=== PATIENT | female | born 1985 | race American Indian/Alaskan Native ===

== ENCOUNTER 2020-04-26 18:08 | Emergency (ER) | payer SELFPAY ==
[2020-04-26] MEDS ORDERED: SODIUM CHLORIDE 0.9% 1000 ML 1,000 ML IV ONE (18:45)
[2020-04-26] MEDS ORDERED: FAMOTIDINE 20 MG/2 ML INJ IV ONE (18:45)
[2020-04-26] MEDS ORDERED: dexAMETHasone 20 MG/5 ML VIAL IV ONE (18:45)
--- NOTE | 2020-04-26 18:48 | Emergency Department Report ---
- General Chief complaint: Skin Rash Stated complaint: ALLERGIC REACTION Time Seen by Provider: 04/26/20 18:30 Source: patient Mode of arrival: Ambulatory Limitations: No Limitations - History of Present Illness Initial comments: 34-year-old -[place] female presents to the emergency room complaining of a rash to the face that started this morning. Patient states that the only thing she is eaten is a pink with a gallon which she has never had before. Patient reports she is has tingling feeling in her legs. She states that the rash is progressively gotten worse throughout the day. Patient states she took 4 Benadryl just in the last 3 hours. Patient states that the rash itches and she started to itch all over. Patient denies any difficulty swallowing no swelling of her tongue no wheezing or chest pain or shortness of breath. Patient denies any new medication denies any new perfumes no new soaps or lotions or colognes. 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 Patient states has had a C- section and tubal ligation. MD complaint: rash -: This morning Location: face Severity: moderate Quality: other (Itches and tingling to her lips) - Related Data Previous Rx's Medication Instructions Recorded Last Taken Type Cetirizine HCl [Zyrtec 10mg tab] 10 mg PO QDAY #14 tablet 04/26/20 Unknown Rx Famotidine [Pepcid] 20 mg PO BID #14 tablet 04/26/20 Unknown Rx predniSONE [Deltasone] 20 mg PO QDAY 5 Days #5 tab 04/26/20 Unknown Rx Allergies Allergy/AdvReac Type Severity Reaction Status Date / Time sulfamethoxazole Allergy Hives Verified 04/26/20 18:10 [From Bactrim] trimethoprim [From Bactrim] Allergy Hives Verified 04/26/20 18:10 Abscess Boil HPI - HPI Chief Complaint: Skin Rash Stated Complaint: ALLERGIC REACTION Time Seen by Provider: 04/26/20 18:30 Home Medications: Previous Rx's Medication Instructions Recorded Last Taken Type Cetirizine HCl [Zyrtec 10mg tab] 10 mg PO QDAY #14 tablet 04/26/20 Unknown Rx Famotidine [Pepcid] 20 mg PO BID #14 tablet 04/26/20 Unknown Rx predniSONE [Deltasone] 20 mg PO QDAY 5 Days #5 tab 04/26/20 Unknown Rx Allergies/Adverse Reactions: Allergies Allergy/AdvReac Type Severity Reaction Status Date / Time sulfamethoxazole Allergy Hives Verified 04/26/20 18:10 [From Bactrim] trimethoprim [From Bactrim] Allergy Hives Verified 04/26/20 18:10 ED Review of Systems ROS: Stated complaint: ALLERGIC REACTION Other details as noted in HPI Comment: All other systems reviewed and negative ED Past Medical Hx - Past Medical History Previous Medical History?: No - Surgical History Additional Surgical History: CSECTION TUBAL LIGATATION - Social History Smoking Status: Never Smoker Substance Use Type: Alcohol - Medications Home Medications: Home Medications Medication Instructions Recorded Confirmed Last Taken Type Cetirizine HCl [Zyrtec 10mg tab] 10 mg PO QDAY #14 tablet 04/26/20 Unknown Rx Famotidine [Pepcid] 20 mg PO BID #14 tablet 04/26/20 Unknown Rx predniSONE [Deltasone] 20 mg PO QDAY 5 Days #5 tab 04/26/20 Unknown Rx ED Physical Exam - General Limitations: No Limitations General appearance: alert, in no apparent distress - Head Head exam: Present: atraumatic, normocephalic - Eye Eye exam: Present: normal appearance - ENT ENT exam: Present: normal exam, normal orophraynx, mucous membranes moist - Neck Neck exam: Present: normal inspection, full ROM - Respiratory Respiratory exam: Present: normal lung sounds bilaterally. Absent: accessory muscle use - Cardiovascular Cardiovascular Exam: Present: regular rate, normal rhythm. Absent: systolic murmur, diastolic murmur, rubs, gallop - Neurological Exam Neurological exam: Present: alert, oriented X3, normal gait - Skin Skin exam: Present: erythema, urticaria - Expanded Skin Exam Expanded Distribution of rash: face Description of rash: Present: erythematous, papular ED Course Vital Signs 04/26/20 18:11 Temperature 97.7 F Pulse Rate 73 Respiratory 16 Rate Blood Pressure 127/76 O2 Sat by Pulse 100 Oximetry - Reevaluation(s) Reevaluation #1: 04/26/20 20:59 Patient reports she feels much better after having medication. ED Medical Decision Making - Medical Decision Making 34-year-old -[place] female presents to the emergency room complaining of a rash to the face that started this morning. Patient states that the only thing she is eaten is a pink with a gallon which she has never had before. Patient reports she is has tingling feeling in her legs. She states that the rash is progressively gotten worse throughout the day. Patient states she took 4 Benadryl just in the last 3 hours. Patient states that the rash itches and she started to itch all over. Patient denies any difficulty swallowing no swelling of her tongue no wheezing or chest pain or shortness of breath. Patient denies any new medication denies any new perfumes no new soaps or lotions or colognes. 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 Patient states has had a C-sect ion and tubal ligation. Patient will be given an IV of normal saline dexamethasone 10 mg IV and Pepcid 20 mg IV. [id number] blood sugar will be checked before placing patient on prednisone. Patient also be discharged on Pepcid and Zyrtec. Critical care attestation.: If time is entered above; I have spent that time in minutes in the direct care of this critically ill patient, excluding procedure time. ED Disposition Clinical Impression: Allergic reaction Qualifiers: Encounter type: initial encounter Qualified Code(s): T78.40XA - Allergy, unspecified, initial encounter Disposition: TO HOME OR SELFCARE Is pt being admited?: No Does the pt Need Aspirin: No Condition: Stable Instructions: Allergies, Adult Additional Instructions: Please take medications as prescribed. If symptoms does not improve in a few days please follow-up with a ip litigation paralegal. Prescriptions: predniSONE [Deltasone] 20 mg PO QDAY 5 Days #5 tab Famotidine [Pepcid] 20 mg PO BID #14 tablet Cetirizine HCl [Zyrtec 10mg tab] 10 mg PO QDAY #14 tablet Referrals: [facility],MD [Primary Care Provider] - 3-5 Days [facility] [Provider Group] - 3-5 Days Forms: Work/School Release Form(ED)
[2020-04-26 21:45] VITALS: BP 119/75
== END 2020-04-26 21:44 | disposition home or self-care (01) ==
LOC: ED 18:08
DX: T78.40XA Allergy, unspecified, initial encounter (principal); Z88.2 Allergy status to sulfonamides; Z88.8 Allergy status to other drugs, medicaments and biological substances; Z98.890 Other specified postprocedural states; Z98.51 Tubal ligation status; Y93.89 Activity, other specified
CPT/HCPCS: 96361; 96374; 96375; 99282; J1100; J7030